=== PATIENT | male | born 1985 | race Caucasian/White ===

== ENCOUNTER 2017-02-11 22:57 | Emergency (ER) | payer MEDICAID, OTHER ==
[~2017-02-11] VITALS: Ht 195.6 cm; Wt 84.1 kg
[~2017-02-11 22:57] MED LIST: ATOM10CA PO; CITA40TA13 PO; OXYC1TAB24 PO
[2017-02-11 23:04] VITALS: BP 120/84; PULSE 63; RESP 24; O2SAT 100
--- NOTE | 2017-02-11 23:54 | ED.REPORT ---
HPI- Male Date of Service February 11, 2017 ED Provider: Jose David Hernandez MD Patient is a 31 year old male who presents to the ED complaining of groin pain onset two days ago. Associated symptoms include rash, dysuria, testicular pain and swelling, irregular discharge from penis, and vomiting after eating for the past five days. He denies nausea, abdominal pain or fever. Patient states that he has never has not had symptoms like this before. The patient reports that he received a call from the health department regarding possible Chlamydia from a sexual partner that he had three weeks ago. He has since been with a different partner four days ago, without any protection. Nursing Notes Stated Complaint: PAIN IN GROIN Chief Complaint: Male Abdominal Pain Nursing Notes Reviewed: Yes Allergies: Coded Allergies: No Known Allergies (Unverified Allergy, Unknown, 02/11/17) Scheduled Atomoxetine (Strattera) 10 Mg Capsule 10 MG PO DAILY Citalopram (Citalopram) 40 Mg Tablet 40 MG PO DAILY Scheduled PRN oxyCODONE-Acetaminophen 5-325 mg (oxyCODONE-Acetaminophen 5-325 mg) 1 Each Tablet 1-2 TAB PO Q4H PRN PRN For Pain General Time Seen by MD: 23:15 Chief Complaint Testicle painful right, Testicle painful left Hx Obtained From: Patient Arrived By: Walk-in Onset Occurred: 2 days ago Symptom Duration: Since onset Associated with: Reports: Rash Recent Healthcare: No recent doctor visit, No recent hospitalization Similar Sx Previous: No Past Medical History Past Medical History ADD Depression Past Surgical History Tonsillectomy Otherwise denies Family History Noncontributory Smoking History Current Every Day Smoker Social History Alcohol Use: Denies alcohol use Drug Use: THC Ambulatory Status Independent Review of Systems Constitutional: Denies: Fever GI: Reports: Vomiting, Denies: Abdominal pain, Nausea Male: Reports Dysuria, Reports Penile discharge, Reports Testicular pain, Reports Testicular swelling Complete sys rev & neg: except as marked. Physical Exam Initial Vital Signs Vital Signs (First) Date Time Temp Pulse Resp B/P Pulse Ox O2 Delivery O2 Flow Rate FiO2 02/11/17 23:04 36.7 63 24 120/84 100 Room Air Initial VS: Reviewed, Vital signs normal EXAM: circumcised erythema around external urethral meatus yellowish discharge General/Constitutional: Awake, Alert, No acute distress Skin: Atraumatic, Color NL, Warm, Dry Head / Eyes: Atraumatic, Normocephalic, PERRL, EOMI Respiratory / Chest: Atraumatic, No respiratory distress Upper Extremity / MS: Atraumatic, Full range of motion Lower Extremity / Pelvis / MS: Atraumatic, Full range of motion Neurologic: Oriented X3, Speech NL, No motor deficits, No sensory deficits Psychiatric: Affect NL, Mood NL Re-Eval/Medical Decision Med Decision/Clinical Course 31-year-old chlamydia contact to now has developed dysuria and discharge. Gen- Probe was sent. He was given Rocephin 250 mg IM and azithromycin 1 g by mouth. He is already in contact with Gricelda at the health department for the investigation of this. He was given verbal instructions, but left prior to receiving written instructions. Re-Evaluation/Progress : Time of Eval: 01:03 Re-Evaluation/Progress Note: Patient left before receiving discharge instructions and ED warnings. Counseled Regarding: Diagnosis, Lab results, Need for follow-up, When/why to return to ED Discharge & Departure Impression: Primary Impression: Urethritis Additional Impression: Chlamydia contact, untreated Disposition: Home Discharge Condition All VS Reviewed: Yes Condition: Stable Patient Instructions: Nonspecific Urethritis in Men (GEN) Additional Instructions: You were tested and treated for chlamydia and gonorrhea. Azithromycin 1 g orally. Rocephin 250 mg IM. Continue your discussions with Gricelda at the [facility]. Do not have unprotected sex, ever. Referrals: [facility] Scribe Attestation Portions of this note were transcribed by Karla Al I, Dr. Hernandez personally performed the history, physical exam and medical decision-making; I reviewed and confirmed the accuracy of the information in the transcribed note. Signed by: Lamberto Rueda, 02/12/17 and 0106 copies to: [facility] Jose David Hernandez MD February 11, 2017 23:54 Eusebia Al February 12, 2017 00:02
[2017-02-12] MEDS ORDERED: cefTRIAXone Inj 250 MG, Lidocaine PF 1% Inj 0.9 ML in Syringe 1 EACH IM ONE ×3
== END 2017-02-12 01:02 | disposition home or self-care (01) ==
LOC: SED 22:57
DX: N34.1 Nonspecific urethritis (principal); F17.200 Nicotine dependence, unspecified, uncomplicated; F12.10 Cannabis abuse, uncomplicated; F32.9 Major depressive disorder, single episode, unspecified; Z20.2 Contact with and (suspected) exposure to infections with a predominantly sexual mode of transmission
CPT/HCPCS: 96372; 99283; J0696